=== PATIENT | male | born 1970 | race Caucasian/White ===

== ENCOUNTER 2018-03-03 12:37 | Outpatient (CLI) | payer BC ==
--- NOTE | 2018-03-03 14:10 | RAD ---
SINGLE VIEW OF THE PELVIS: Comparison: None. History: Patient fells that his hip has bene popping out for the last 7 days. Discomfort in the hips. FINDINGS: Single view of the pelvis shows no evidence of fracture or dislocation. No significant degenerative c hange is seen in either hip. IMPRESSION: Unremarkable exam. POS: KATE
--- NOTE | 2018-03-03 14:12 | RAD ---
THREE VIEWS LUMBOSACRAL SPINE: Comparison: None. History: Low back pain. Hip pain after hip having been popping out for seven days. FINDINGS: Three views of the lumbosacral spine shows normal height and alignment of the vertebral bodies withou t fracture or subluxation. Very minimal osteophytes are seen in the lower lumbar spine. The sacroilia c joints are unremarkable. IMPRESSION: Minimal degenerative change of the lower lumbosacral spine without acute osseous abnormality. POS: JUAN R
== END 2018-03-03 12:38 | disposition home or self-care (01) ==
LOC: NAV RAD 12:37
DX: G24.2 Idiopathic nonfamilial dystonia (principal); M47.817 Spondylosis without myelopathy or radiculopathy, lumbosacral region
CPT/HCPCS: 72100; 72170

== ENCOUNTER 2019-03-28 14:31 | Emergency (ER) | payer BC ==
[2019-03-28] MEDS ORDERED: Aspirin Chewable 81 MG TAB ONE (14:58)
[2019-03-28 15:13] LABS: #Basophils 0.1 thou/uL (0.0-0.2); #Eosinphils 0.3 thou/uL (0.0-0.7); #Lymphocytes 1.9 thou/uL (1.20-3.40); #Monocytes 0.5 thou/uL (0.11-0.59); #Neutrophils 3.9 thou/uL (1.40-6.50); %Basophils 1.5 % (0.0-1.0); %Eosinophils 4.1 % (0.0-10.0); %Monocytes 7.1 % (0.0-10.0); %Neutrophils 58.3 % (42.0-75.0); Hemoglobin 15.4 g/dL (14.0-18.0); Mean Corpuscular HGB CONC 32.7 g/dL (32.0-36.0); Mean Corpuscular Hemoglobin 29.2 pg (27.0-31.0); Mean Corpuscular Volume 89.5 fL (78.0-98.0); Mean Platelet Volume 7.7 fL (7.4-10.4); Platelet Count 233 thou/uL (130-400); RBC Distribution Width 11.5 % (11.5-14.5); Red Blood Cell (RBC) Count 5.26 mill/uL (4.70-6.10); White Blood Cell (WBC) Count 6.6 thou/uL (4.8-10.8)
--- NOTE | 2019-03-28 15:30 | RAD ---
CHEST TWO VIEWS: HISTORY: Chest pain. FINDINGS: Heart size is normal. The lungs are clear. No confluent pneumonia, overt edema or pleural effusion. IMPRESSION: No acute intrathoracic disease. POS: OFF
[2019-03-28 15:37] LABS: ALT (SGPT) 29 U/L (8-55); AST (SGOT) 22 U/L (5-34); Albumin 4.4 g/dL (3.5-5.0); Alkaline Phosphatase 59 U/L (40-110); Anion Gap 15 mmol/L (10-20); BUN (Urea Nitrogen) 16 mg/dL (8.9-20.6); Bilirubin, Total 0.6 mg/dL (0.2-1.2); Calc. Creatinine Clearance 0 mL/min (70-130); Calcium 9.5 mg/dL (7.8-10.44); Carbon Dioxide 25 mmol/L (22-29); Chloride 103 mmol/L (98-107); Estimated GFR-MDRD 78; Globulin 2.3 g/dL (2.4-3.5); Glucose 91 mg/dL (70-105); Lipase 13 U/L (8-78); Magnesium 1.9 mg/dL (1.6-2.6); Protein, Total 6.7 g/dL (6.0-8.3); Sodium 139 mmol/L (136-145)
== END 2019-03-28 17:55 | disposition home or self-care (01) ==
LOC: NAV ERS 14:31
DX: R07.9 Chest pain, unspecified (principal)
CPT/HCPCS: 71046; 80053; 83690; 83735; 84484; 85025; 93005; 94760

== ENCOUNTER 2020-07-28 13:03 | Outpatient (CLI) | payer BC ==
[2020-07-28 13:41] LABS: Troponin I Less than 0.010 ng/mL (< 0.028)
[2020-07-28 16:38] LABS: CKMB 0.6 ng/mL (0-6.6)
== END 2020-07-28 13:04 | disposition home or self-care (01) ==
LOC: NAV LAB 13:03
PROVIDERS: ATTEND Internal Medicine Cardiovascular Disease
DX: R07.9 Chest pain, unspecified (principal); R68.84 Jaw pain
CPT/HCPCS: 82550; 82553; 83874; 84484